=== PATIENT | male | born 1970 | race Caucasian/White ===

== ENCOUNTER 2022-01-21 16:07 | Emergency (ER) | payer BC ==
[2022-01-21] MEDS: Acetaminophen 325 MG Tab PO ONE (16:32)
[2022-01-21] MEDS: Nirmatrelvir/Ritonavir 300 MG/100 MG Dose Pack PO SCH (17:47)
== END 2022-01-21 17:53 | disposition home or self-care (01) ==
LOC: CC.ED 16:07
DX: U07.1 COVID-19 (principal); R50.81 Fever presenting with conditions classified elsewhere; E11.9 Type 2 diabetes mellitus without complications; Z79.899 Other long term (current) drug therapy
CPT/HCPCS: 36415; 71046; 80053; 85025; 86140; 99283; 99284; A9270-GY